=== PATIENT | female | born 1965 | race Two or more races ===

== ENCOUNTER 2020-07-24 15:12 | Outpatient (CLI) | payer OTHER | END 2020-07-24 15:23 | disposition home or self-care (01) | LOC: TOM 15:12 | PROVIDERS: ATTEND Surgery | DX: K57.32 Diverticulitis of large intestine without perforation or abscess without bleeding (principal); K92.1 Melena; R63.4 Abnormal weight loss; R19.4 Change in bowel habit ==

== ENCOUNTER 2020-07-29 07:17 | Day surgery (SDC) | payer OTHER ==
[2020-07-29] MEDS ORDERED: ULTRAM50 MG (17:45)
[2020-07-29] MEDS ORDERED: DICY20TA (17:46)
== END 2020-07-29 11:30 | disposition home or self-care (01) ==
LOC: AMB-ENDOS 07:17
PROVIDERS: ATTEND Surgery
DX: K62.89 Other specified diseases of anus and rectum (principal); K64.8 Other hemorrhoids; Z20.828 Contact with and (suspected) exposure to other viral communicable diseases

== ENCOUNTER 2020-07-29 17:16 | Inpatient (IN) | payer OTHER ==
[~2020-07-29] VITALS: Ht 157.5 cm; Wt 56.7 kg
[2020-07-29] MEDS ORDERED: ULTRAM50 MG (17:45)
[2020-07-29] MEDS ORDERED: DICY20TA (17:46)
--- NOTE | 2020-07-29 17:46 | NUR ---
PTE SE RECIBE POR VOMITTING Y DOLOR DE [place] REFIERE PTE.
--- NOTE | 2020-07-29 19:26 | NUR ---
SE ORIENTA PTE SOBRE TX MEDICO EL CUAL REFIERE ENTENDER.SE LE EXTRAEN MUESTRAS BAJO MEDIDAS ASEPTICAS,SE CANALIZA Y SE ADMINISTRAN MEDICAMENTOS PAM ORDEN MEDICA.SE NOTIFICA CT.
--- NOTE | 2020-07-29 23:21 | NUR ---
SE RECIBE PTE ALERTA Y ORIENTADA POR 3 LA CUAL SE ENCUENTRA EN ROBE CON BARANDAS ELEVADAS, ID BAND. LA MISMA SE ENCUENTRA BAJANDO KCL 40MEQ/1000ML AT 125ML/HR Y 0.9NSS AT 150ML/HR. PEND A LECTURA DE CT DE ABD.
== END 2020-08-09 14:05 | disposition home or self-care (01) | DRG 389 ==
LOC: ER 17:16 → SEC-K 07-30 01:16 → SURH 07-30 01:16
PROVIDERS: ADMIT Surgery; ATTEND Surgery
PROC: 02H633Z Insertion of Infusion Device into Right Atrium, Percutaneous Approach (ICD-10-PCS; principal; 2020-07-31)
PROC: BU46ZZZ Ultrasonography of Uterus (ICD-10-PCS; 2020-07-31)
PROC: [UNRECOGNIZED PROCEDURE] (2020-08-05)
DX: K56.690 Other partial intestinal obstruction (principal); K57.32 Diverticulitis of large intestine without perforation or abscess without bleeding; E03.9 Hypothyroidism, unspecified; Z20.828 Contact with and (suspected) exposure to other viral communicable diseases; J45.20 Mild intermittent asthma, uncomplicated; N83.292 Other ovarian cyst, left side; D25.1 Intramural leiomyoma of uterus; Z53.29 Procedure and treatment not carried out because of patient's decision for other reasons
CPT/HCPCS: 72198

== ENCOUNTER 2021-02-17 11:30 | Inpatient (IN) | payer OTHER ==
[~2021-02-17] VITALS: Ht 157.5 cm; Wt 51.3 kg
[~2021-02-17 11:30] MED LIST: DICY20TA; ULTRAM50 MG
[2021-02-17] MEDS ORDERED: SYNTHROID50 MCG PO (16:27)
[2021-02-17] MEDS ORDERED: TYLEN PO (16:28)
[2021-02-17] MEDS ORDERED: [UNRECOGNIZED DRUG - OTHER] PO (16:29)
[2021-02-17] MEDS ORDERED: ULTRAM50 MG PO (16:29)
[2021-02-17] MEDS ORDERED: MULTIVIT PO (16:29)
[2021-02-19] MEDS ORDERED: TYLENOL325 MG (09:21)
[2021-02-19] MEDS ORDERED: MULTI VITAMIN1 EACH PO (09:21)
[2021-02-22] MEDS ORDERED: PROTONIX40 MG PO (13:21)
[2021-02-22] MEDS ORDERED: ULTRACET PO (13:21)
[2021-02-22] MEDS ORDERED: DICLOFENAC SODI75 MG PO (13:21)
[2021-02-22] MEDS ORDERED: INTESTINEX680 M1 PO (13:22)
== END 2021-02-22 17:30 | disposition home or self-care (01) | DRG 330 ==
LOC: SURH 02-19 07:00 → O/R 02-19 07:24 → SURH 02-19 11:30
PROVIDERS: ADMIT Surgery; ATTEND Surgery
PROC: 0DTN0ZZ Resection of Sigmoid Colon, Open Approach (ICD-10-PCS; 2021-02-19)
PROC: 0DJD8ZZ Inspection of Lower Intestinal Tract, Via Natural or Artificial Opening Endoscopic (ICD-10-PCS; 2021-02-19)
PROC: 3E0F7SF Introduction of Other Gas into Respiratory Tract, Via Natural or Artificial Opening (ICD-10-PCS; 2021-02-19)
PROC: 3E0F7GC Introduction of Other Therapeutic Substance into Respiratory Tract, Via Natural or Artificial Opening (ICD-10-PCS; 2021-02-19)
PROC: 4A12X4Z Monitoring of Cardiac Electrical Activity, External Approach (ICD-10-PCS; 2021-02-19)
PROC: 4A033R1 Measurement of Arterial Saturation, Peripheral, Percutaneous Approach (ICD-10-PCS; 2021-02-19)
PROC: 0DTP0ZZ Resection of Rectum, Open Approach (ICD-10-PCS; principal; 2021-02-19 07:00)
DX: K57.32 Diverticulitis of large intestine without perforation or abscess without bleeding (principal); K92.1 Melena; K56.699 Other intestinal obstruction unspecified as to partial versus complete obstruction; R10.9 Unspecified abdominal pain; K66.0 Peritoneal adhesions (postprocedural) (postinfection); J45.20 Mild intermittent asthma, uncomplicated; R63.4 Abnormal weight loss; R59.0 Localized enlarged lymph nodes; R19.4 Change in bowel habit; Z20.822 Contact with and (suspected) exposure to COVID-19

== ENCOUNTER 2022-11-11 13:00 | Emergency (ER) | payer OTHER ==
[~2022-11-11] VITALS: Ht 157.5 cm; Wt 68.0 kg
[~2022-11-11 13:00] MED LIST changes: +DICLOFENAC SODI75 MG PO; +INTESTINEX680 M1 PO; +MULTI VITAMIN1 EACH PO; +MULTIVIT PO; +PROTONIX40 MG PO; +SYNTHROID50 MCG PO; +TYLEN PO; +TYLENOL325 MG; +ULTRACET PO; +ULTRAM50 MG PO; +[UNRECOGNIZED DRUG - OTHER] PO
[2022-11-11] MEDS ORDERED: HYOSCYAMINE0.125 M2 (13:25)
== END 2022-11-11 15:12 | disposition home or self-care (01) ==
LOC: ER 13:00
DX: R10.9 Unspecified abdominal pain (principal); K80.80 Other cholelithiasis without obstruction; R11.0 Nausea